=== PATIENT | male | born 1950 | race Two or more races ===

== ENCOUNTER 2017-04-21 14:13 | Outpatient (CLI) | payer OTHER ==
[~2017-04-21 14:13] MED LIST: ALAVERT5 MG/5 ML; PRILOSEC20 MG
== END 2017-04-21 14:16 | disposition home or self-care (01) ==
LOC: NUCLEAR 14:13
DX: M81.0 Age-related osteoporosis without current pathological fracture (principal)

== ENCOUNTER 2017-07-02 16:04 | Outpatient (CLI) | payer OTHER | END 2017-07-02 16:42 | disposition home or self-care (01) | LOC: LAB 16:04 | DX: N30.00 Acute cystitis without hematuria (principal); R82.79 Other abnormal findings on microbiological examination of urine; N39.41 Urge incontinence; Q05.2 Lumbar spina bifida with hydrocephalus; N31.1 Reflex neuropathic bladder, not elsewhere classified ==

== ENCOUNTER 2017-07-08 11:40 | Outpatient (CLI) | payer OTHER | END 2017-07-08 11:45 | disposition home or self-care (01) | LOC: SONOGRAMA 11:40 | DX: M25.511 Pain in right shoulder (principal); M25.512 Pain in left shoulder ==

== ENCOUNTER 2017-07-10 21:08 | Inpatient (IN) | payer OTHER ==
[~2017-07-10] VITALS: Ht 152.4 cm; Wt 61.2 kg
[2017-07-14] MEDS ORDERED: AVAPRO300 MG PO (14:22)
[2017-07-14] MEDS ORDERED: TYLENOL325 MG PO (14:23)
[2017-07-14] MEDS ORDERED: CEFDINIR300 MG PO (14:26)
== END 2017-07-14 15:01 | disposition home or self-care (01) | DRG 690 ==
LOC: ER 21:08 → MEDJ 07-11 11:03 → SEC-K 07-11 11:03 → MEDJ 07-11 12:35
DX: N39.0 Urinary tract infection, site not specified (principal); G82.22 Paraplegia, incomplete; Q05.4 Unspecified spina bifida with hydrocephalus; I11.9 Hypertensive heart disease without heart failure; K21.9 Gastro-esophageal reflux disease without esophagitis; Z93.59 Other cystostomy status

== ENCOUNTER 2017-10-20 17:17 | Outpatient (CLI) | payer OTHER ==
[~2017-10-20 17:17] MED LIST changes: +AVAPRO300 MG PO; +CEFDINIR300 MG PO; +TYLENOL325 MG PO
== END 2017-10-20 18:19 | disposition home or self-care (01) ==
LOC: LAB 17:17
DX: N30.00 Acute cystitis without hematuria (principal); N39.41 Urge incontinence; N31.1 Reflex neuropathic bladder, not elsewhere classified; Q05.2 Lumbar spina bifida with hydrocephalus; R82.79 Other abnormal findings on microbiological examination of urine

== ENCOUNTER → 2017-12-11 16:07 | Outpatient (CLI) | payer OTHER | END | disposition home or self-care (01) | LOC: LAB 12-10 14:05 | DX: N30.00 Acute cystitis without hematuria (principal); R82.79 Other abnormal findings on microbiological examination of urine ==

== ENCOUNTER 2018-01-20 17:27 | Outpatient (CLI) | payer OTHER | END 2018-01-20 17:52 | disposition home or self-care (01) | LOC: LAB 17:27 | DX: N39.0 Urinary tract infection, site not specified (principal); R82.79 Other abnormal findings on microbiological examination of urine ==

== ENCOUNTER 2018-01-23 11:11 | Outpatient (CLI) | payer OTHER | END 2018-01-23 11:18 | disposition home or self-care (01) | LOC: SONOGRAMA 11:11 → MAMO-SONO 11:15 → SONOGRAMA 11:18 | DX: R31.21 Asymptomatic microscopic hematuria (principal) ==

== ENCOUNTER 2018-06-15 19:59 | Outpatient (CLI) | payer OTHER | END 2018-06-15 20:57 | disposition home or self-care (01) | LOC: LAB 19:59 | DX: N39.0 Urinary tract infection, site not specified (principal); B96.29 Other Escherichia coli [E. coli] as the cause of diseases classified elsewhere ==

== ENCOUNTER → 2019-01-08 20:42 | Outpatient (CLI) | payer OTHER | END | disposition home or self-care (01) | LOC: LAB 20:42 | DX: N39.0 Urinary tract infection, site not specified (principal); B96.29 Other Escherichia coli [E. coli] as the cause of diseases classified elsewhere ==

== ENCOUNTER 2019-04-26 18:28 | Inpatient (IN) | payer OTHER ==
[~2019-04-26] VITALS: Ht 152.4 cm; Wt 63.5 kg
[2019-04-28] MEDS ORDERED: IRBESARTAN-HCT1 EAC1 (15:51)
[2019-04-28] MEDS ORDERED: B-121000 MC1 (15:51)
[2019-04-28] MEDS ORDERED: TOLTERODINE TART4 MG (15:51)
[2019-04-28] MEDS ORDERED: VITAMIN C500 M1 (15:51)
== END 2019-05-03 13:34 | disposition home or self-care (01) | DRG 690 ==
LOC: ER 18:28 → MEDJ 20:53
PROVIDERS: ADMIT Specialist
DX: N39.0 Urinary tract infection, site not specified (principal); G82.20 Paraplegia, unspecified; L02.211 Cutaneous abscess of abdominal wall; Q07.03 Arnold-Chiari syndrome with spina bifida and hydrocephalus; L03.311 Cellulitis of abdominal wall; B95.2 Enterococcus as the cause of diseases classified elsewhere; Z93.59 Other cystostomy status; Z99.3 Dependence on wheelchair; Q40.0 Congenital hypertrophic pyloric stenosis; I67.1 Cerebral aneurysm, nonruptured; I11.9 Hypertensive heart disease without heart failure

== ENCOUNTER 2019-05-28 15:27 | Outpatient (CLI) | payer OTHER ==
[~2019-05-28 15:27] MED LIST changes: +B-121000 MC1; +IRBESARTAN-HCT1 EAC1; +TOLTERODINE TART4 MG; +VITAMIN C500 M1
== END 2019-05-28 15:43 | disposition home or self-care (01) ==
LOC: LAB 15:27
DX: N39.0 Urinary tract infection, site not specified (principal)

== ENCOUNTER → 2019-07-05 17:01 | Outpatient (CLI) | payer OTHER | END | disposition home or self-care (01) | LOC: LAB 17:01 | DX: N39.0 Urinary tract infection, site not specified (principal); B96.29 Other Escherichia coli [E. coli] as the cause of diseases classified elsewhere ==

== ENCOUNTER 2019-07-27 19:07 | Emergency (ER) | payer OTHER ==
[~2019-07-27] VITALS: Ht 121.9 cm; Wt 65.8 kg
== END 2019-07-27 21:22 | disposition home or self-care (01) ==
LOC: ER 19:07
DX: K81.0 Acute cholecystitis (principal); R10.11 Right upper quadrant pain

== ENCOUNTER 2019-08-08 12:08 | Outpatient (CLI) | payer OTHER | END 2019-08-08 12:10 | disposition home or self-care (01) | LOC: SONOGRAMA 12:08 | PROVIDERS: ATTEND Internal Medicine Gastroenterology | DX: R10.10 Upper abdominal pain, unspecified (principal); K80.20 Calculus of gallbladder without cholecystitis without obstruction; K21.0 Gastro-esophageal reflux disease with esophagitis; K44.9 Diaphragmatic hernia without obstruction or gangrene ==

== ENCOUNTER 2019-08-14 11:48 | Outpatient (CLI) | payer OTHER | END 2019-08-14 13:28 | disposition home or self-care (01) | LOC: LAB 11:48 | PROVIDERS: ATTEND Internal Medicine Gastroenterology | DX: Z20.828 Contact with and (suspected) exposure to other viral communicable diseases (principal); Z11.59 Encounter for screening for other viral diseases ==

== ENCOUNTER 2019-08-15 14:45 | Inpatient (IN) | payer OTHER ==
[~2019-08-15] VITALS: Ht 147.3 cm; Wt 63.5 kg
== END 2019-08-26 22:42 | disposition home or self-care (01) | DRG 728 ==
LOC: ER 14:45 → MEDJ 21:00
PROVIDERS: ADMIT Specialist; ATTEND Specialist
PROC: BW40ZZZ Ultrasonography of Abdomen (ICD-10-PCS; principal; 2019-08-15)
PROC: BF2 Imaging, Hepatobiliary System and Pancreas, Computerized Tomography (CT Scan) (ICD-10-PCS; 2019-08-16)
PROC: BW21ZZZ Computerized Tomography (CT Scan) of Abdomen and Pelvis (ICD-10-PCS; 2019-08-25)
DX: B37.49 Other urogenital candidiasis (principal); K80.10 Calculus of gallbladder with chronic cholecystitis without obstruction; Q07.03 Arnold-Chiari syndrome with spina bifida and hydrocephalus; G82.20 Paraplegia, unspecified; F32.0 Major depressive disorder, single episode, mild; K22.0 Achalasia of cardia; I11.9 Hypertensive heart disease without heart failure; F41.9 Anxiety disorder, unspecified; Z93.50 Unspecified cystostomy status; Z99.3 Dependence on wheelchair

== ENCOUNTER → 2020-02-04 12:56 | Outpatient (CLI) | payer OTHER | END | disposition home or self-care (01) | LOC: RAD 12:56 | PROVIDERS: ATTEND Physical Medicine & Rehabilitation | DX: M47.892 Other spondylosis, cervical region (principal); M54.2 Cervicalgia ==

== ENCOUNTER → 2020-07-03 | Outpatient (CLI) | payer OTHER ==
[~2020-07-03] MED LIST changes: +GASTRACE CAPSU1 EACH; +PROTONIX IV40 MG
== END | disposition home or self-care (01) ==
LOC: MAMO-SONO 13:00 → SONOGRAMA 14:25
PROVIDERS: ATTEND Urology
DX: N30.00 Acute cystitis without hematuria (principal); N39.41 Urge incontinence; Q05.2 Lumbar spina bifida with hydrocephalus; N31.1 Reflex neuropathic bladder, not elsewhere classified

== ENCOUNTER 2020-07-31 17:06 | Emergency (ER) | payer OTHER ==
[~2020-07-31] VITALS: Ht 142.2 cm; Wt 59.0 kg
[~2020-07-31 17:06] MED LIST changes: -GASTRACE CAPSU1 EACH; -PROTONIX IV40 MG
[2020-07-31] MEDS ORDERED: GASTRACE CAPSU1 EACH (17:13)
[2020-07-31] MEDS ORDERED: PROTONIX IV40 MG (17:13)
== END 2020-07-31 22:13 | disposition home or self-care (01) ==
LOC: ER 17:06
DX: N39.0 Urinary tract infection, site not specified (principal); B96.89 Other specified bacterial agents as the cause of diseases classified elsewhere; R31.0 Gross hematuria; Q05.2 Lumbar spina bifida with hydrocephalus

== ENCOUNTER 2020-10-27 11:37 | Emergency (ER) | payer OTHER ==
[~2020-10-27] VITALS: Ht 147.3 cm; Wt 59.0 kg
[~2020-10-27 11:37] MED LIST changes: +GASTRACE CAPSU1 EACH; +PROTONIX IV40 MG
[2020-10-27] MEDS ORDERED: LEVOFLOXACIN500 MG PO (17:17)
== END 2020-10-27 18:27 | disposition home or self-care (01) ==
LOC: ER 11:37
DX: N39.0 Urinary tract infection, site not specified (principal); J02.9 Acute pharyngitis, unspecified; Z11.52 Encounter for screening for COVID-19

== ENCOUNTER → 2021-01-08 | Outpatient (CLI) | payer OTHER ==
[~2021-01-08] MED LIST changes: +LEVOFLOXACIN500 MG PO
== END | disposition home or self-care (01) ==
LOC: NUCLEAR 11:00
PROVIDERS: ATTEND Internal Medicine Cardiovascular Disease
DX: R00.2 Palpitations (principal); R07.89 Other chest pain

== ENCOUNTER 2021-02-27 14:06 | Emergency (ER) | payer OTHER ==
[~2021-02-27] VITALS: Ht 149.9 cm; Wt 59.0 kg
[2021-02-27] MEDS ORDERED: IRBESARTAN150 MG PO (14:52)
[2021-02-27] MEDS ORDERED: TOLTERODINE TART2 M1 PO (14:53)
== END 2021-02-27 20:52 | disposition home or self-care (01) ==
LOC: ER 14:06
DX: U07.1 COVID-19 (principal); N39.0 Urinary tract infection, site not specified

== ENCOUNTER 2021-11-19 14:58 | Outpatient (CLI) | payer OTHER ==
[~2021-11-19 14:58] MED LIST changes: +IRBESARTAN150 MG PO; +TOLTERODINE TART2 M1 PO
== END 2021-11-19 14:59 | disposition home or self-care (01) ==
LOC: SONOGRAMA 14:58
PROVIDERS: ATTEND Urology
DX: N30.00 Acute cystitis without hematuria (principal); N39.41 Urge incontinence; Q05.2 Lumbar spina bifida with hydrocephalus; N31.1 Reflex neuropathic bladder, not elsewhere classified

== ENCOUNTER 2022-03-06 19:38 | Emergency (ER) | payer OTHER ==
[~2022-03-06] VITALS: Ht 144.8 cm; Wt 61.2 kg
[2022-03-07] MEDS ORDERED: PROTONIX40 M1 PO (00:05)
[2022-03-07] MEDS ORDERED: CARAFATE1 GM PO (00:05)
[2022-03-07] MEDS ORDERED: LEVSIN/SL0.125 MG SL (00:05)
== END 2022-03-07 02:36 | disposition home or self-care (01) ==
LOC: ER 19:38
DX: K29.70 Gastritis, unspecified, without bleeding (principal); I10 Essential (primary) hypertension; E03.9 Hypothyroidism, unspecified; K80.20 Calculus of gallbladder without cholecystitis without obstruction; Z88.6 Allergy status to analgesic agent

== ENCOUNTER 2022-04-15 20:12 | Emergency (ER) | payer OTHER ==
[~2022-04-15] VITALS: Ht 132.1 cm; Wt 54.9 kg
[~2022-04-15 20:12] MED LIST changes: +CARAFATE1 GM PO; +LEVSIN/SL0.125 MG SL; +PROTONIX40 M1 PO
== END 2022-04-16 17:34 | disposition home or self-care (01) ==
LOC: ER 20:12
DX: N23 Unspecified renal colic (principal); Z88.8 Allergy status to other drugs, medicaments and biological substances

== ENCOUNTER 2022-05-12 15:46 | Outpatient (CLI) | payer OTHER | END 2022-05-12 23:00 | disposition home or self-care (01) | LOC: LAB 15:46 | PROVIDERS: ATTEND Urology | DX: N30.00 Acute cystitis without hematuria (principal); N39.41 Urge incontinence; Q05.2 Lumbar spina bifida with hydrocephalus; N31.1 Reflex neuropathic bladder, not elsewhere classified ==

== ENCOUNTER 2022-07-01 14:39 | Outpatient (CLI) | payer OTHER | END 2022-07-01 14:40 | disposition home or self-care (01) | LOC: LAB 14:39 | PROVIDERS: ATTEND Urology | DX: N30.00 Acute cystitis without hematuria (principal); N39.41 Urge incontinence; Q05.2 Lumbar spina bifida with hydrocephalus; N31.1 Reflex neuropathic bladder, not elsewhere classified; N21.0 Calculus in bladder ==

== ENCOUNTER → 2022-07-04 | Outpatient (CLI) | payer OTHER | END | disposition home or self-care (01) | LOC: TOM 10:58 | PROVIDERS: ATTEND Urology | DX: N30.00 Acute cystitis without hematuria (principal); N39.41 Urge incontinence; Q05.2 Lumbar spina bifida with hydrocephalus; N31.1 Reflex neuropathic bladder, not elsewhere classified; N21.0 Calculus in bladder ==

== ENCOUNTER 2022-10-18 11:59 | Outpatient (CLI) | payer OTHER | END 2022-10-18 12:01 | disposition home or self-care (01) | LOC: LAB 11:59 | DX: N39.0 Urinary tract infection, site not specified (principal) ==

== ENCOUNTER 2022-11-12 14:43 | Outpatient (CLI) | payer OTHER | END 2022-11-12 14:55 | disposition home or self-care (01) | LOC: MRI 14:43 | PROVIDERS: ATTEND Physical Medicine & Rehabilitation | DX: M54.12 Radiculopathy, cervical region (principal) | CPT/HCPCS: 72141 ==

== ENCOUNTER 2022-12-26 15:26 | Outpatient (CLI) | payer OTHER | END 2022-12-26 15:42 | disposition home or self-care (01) | LOC: SONOGRAMA 15:26 | PROVIDERS: ATTEND Otolaryngology | DX: R22.1 Localized swelling, mass and lump, neck (principal) ==

== ENCOUNTER 2023-03-06 15:06 | Outpatient (CLI) | payer OTHER | END 2023-03-06 15:48 | disposition home or self-care (01) | LOC: MRI 15:06 | PROVIDERS: ATTEND Psychiatry & Neurology Clinical Neurophysiology | DX: I67.1 Cerebral aneurysm, nonruptured (principal) | CPT/HCPCS: 70544 ==

== ENCOUNTER 2023-04-03 18:59 | Inpatient (IN) | payer OTHER ==
[~2023-04-03] VITALS: Ht 147.3 cm; Wt 61.2 kg
[2023-04-04 10:12] LABS: HEMATOCRIT 44.4 % (39.0-48.0); HEMOGLOBIN 15.5 g/dL (13-16.00); MEAN CELL VOLUME 95.3 fL (80.0-100.00); MEAN CORPUSCULAR HEMOGLOBIN 33.4 pg (27.00-32.0); PLATELET COUNT 264 K/uL (150-450); RED BLOOD COUNT 4.66 M/uL (4.00-6.00); RED CELL DISTRIBUTION WIDTH 13.1 % (11.5-14.5)
[2023-04-04 14:40] LABS: ALBUMIN 3.5 gm/dL (3.4-5.0); BILIRUBIN TOTAL 0.8 mg/dL (0.3-1.2); CALCIUM 9.4 mg/dL (8.5-10.1); CREATININE SERUM 0.51 mg/dL (0.70-1.30); GFR 159.31; GLOBULINA 4.4 G/DL (2.4-3.5); POTASSIUM 4.32 mEq/L (3.5-5.1); TOTAL PROTEIN 7.9 gm/dL (6.4-8.2)
[2023-04-04 15:33] LABS: PH,URINE 6.5 (5.0-8.0); URINE APPEARANCE Cloudy; URINE BILIRRUBIN Negative (NEGATIVE); URINE BLOOD Small; URINE COLOR Dark Yellow; URINE GLUCOSE Negative (NEGATIVE); URINE LEUKOCYTE Large; URINE NITRATE Positive; URINE PROTEIN Trace (NEGATIVE)
[2023-04-04 15:37] LABS: URINE EPITHELIAL CELLS 26.9 uL (0.0-38.8); URINE RBC 18.2 uL (0.0-20.8); URINE WBC 223.2 uL (0.0-23.2)
[2023-04-04 16:19] LABS: URINE BACTERIA > 9821.5 uL (0.0-1933)
[2023-04-04] MEDS ORDERED: SODIUM CHLORIDE 0.45 % 1,000 ML IV SCH (16:45)
[2023-04-04] MEDS ORDERED: VANCOMYCIN HCL 1,000 MG VIAL IV SCH (16:56)
[2023-04-04] MEDS ORDERED: ENALAPRILAT DIHYDRATE 1.25 MG/ML VIAL IV PRN (17:00)
[2023-04-04] MEDS ORDERED: LACTOBACILLUS ACIDOPHILUS 1 CAP CAP PO SCH (17:00)
[2023-04-04] MEDS ORDERED: ENOXAPARIN SODIUM 40 MG/0.4 ML SYRINGE SUBCUTANEO SCH (17:03)
[2023-04-04] MEDS ORDERED: PIPERACILLIN/TAZOBACTAM SODIUM 3.375 GM in 0.9 % SODIUM CHLORIDE 100 ML IV SCH (18:00)
[2023-04-04] MEDS ORDERED: FAMOTIDINE/PF 20 MG/2 ML VIAL IV PUSH SCH (21:00)
[2023-04-05] MEDS ORDERED: PANTOPRAZOLE SODIUM 40 MG/VIAL VIAL IV SCH (06:00)
[2023-04-05 07:30] LABS: HEMOGLOBIN 14.2 g/dL (13-16.00); MEAN CELL VOLUME 93.6 fL (80.0-100.00); MEAN CORPUSCULAR HEMOGLOBIN 32.3 pg (27.00-32.0); MEAN CORPUSCULAR HGB CONC 34.5 g/dl (32.0-36.0); PLATELET COUNT 242 K/uL (150-450); RED BLOOD COUNT 4.39 M/uL (4.00-6.00); RED CELL DISTRIBUTION WIDTH 13.1 % (11.5-14.5)
[2023-04-05 07:39] LABS: ALBUMIN 3.1 gm/dL (3.4-5.0); BILIRUBIN TOTAL 0.75 mg/dL (0.3-1.2); CALCIUM 8.8 mg/dL (8.5-10.1); CREATININE SERUM 0.63 mg/dL (0.70-1.30); GFR 124.83; GLOBULINA 3.3 G/DL (2.4-3.5); MAGNESIUM 2.2 mg/dL (1.8-2.4); PHOSPHOROUS 2.8 mg/dL (2.5-4.9); POTASSIUM 4.96 mEq/L (3.5-5.1); TOTAL PROTEIN 6.4 gm/dL (6.4-8.2); TSH 1.72 uIU/mL (0.358-3.74)
[2023-04-05 07:42] LABS: C-REACTIVE PROTEIN 3.19 MG/DL (0.00-0.29)
[2023-04-05 08:08] LABS: ERYTHROCYTE SEDIMENTATION RATE 14 mm/hr
[2023-04-05] MEDS ORDERED: CLOTRIMAZOLE 15 GM TUBE TOP SCH (14:26)
[2023-04-05] MEDS ORDERED: SODIUM CL 0.9% 100 ML IV.SOLN IV ONE (16:08)
[2023-04-06] MEDS ORDERED: MEROPENEM 500 MG/VIAL VIAL IV SCH (14:00)
[2023-04-06] MEDS ORDERED: NYSTATIN 30 GM,SILVER SULFADIAZINE 50 GM,ZINC OXIDE 30 GM TOP SCH (17:00)
[2023-04-06] MEDS ORDERED: RIVAROXABAN 15 MG TABLET PO SCH (17:17)
[2023-04-06] MEDS ORDERED: TEMAZEPAM 15 MG CAPSULE PO SCH (21:00)
[2023-04-07 06:56] LABS: HEMATOCRIT 37.4 % (39.0-48.0); MEAN CELL VOLUME 92.8 fL (80.0-100.00); MEAN CORPUSCULAR HEMOGLOBIN 32.3 pg (27.00-32.0); MEAN CORPUSCULAR HGB CONC 34.8 g/dl (32.0-36.0); PLATELET COUNT 238 K/uL (150-450); RED BLOOD COUNT 4.03 M/uL (4.00-6.00); RED CELL DISTRIBUTION WIDTH 13.3 % (11.5-14.5)
[2023-04-07 07:25] LABS: ALBUMIN 2.9 gm/dL (3.4-5.0); BILIRUBIN TOTAL 0.34 mg/dL (0.3-1.2); CALCIUM 8.6 mg/dL (8.5-10.1); CREATININE SERUM 0.57 mg/dL (0.70-1.30); GFR 140.12; GLOBULINA 3.3 G/DL (2.4-3.5); MAGNESIUM 2.5 mg/dL (1.8-2.4); PHOSPHOROUS 3.1 mg/dL (2.5-4.9); POTASSIUM 4.26 mEq/L (3.5-5.1); TOTAL PROTEIN 6.2 gm/dL (6.4-8.2)
[2023-04-07] MEDS ORDERED: OxyCODONE HCL/APAP UD (PERCOCET) PO PRN (21:15)
[2023-04-08 07:17] LABS: PH,URINE 5.5 (5.0-8.0); URINE APPEARANCE Cloudy; URINE BILIRRUBIN Negative (NEGATIVE); URINE BLOOD NHT; URINE COLOR Yellow; URINE GLUCOSE Negative (NEGATIVE); URINE LEUKOCYTE Moderate; URINE NITRATE Negative; URINE PROTEIN Negative (NEGATIVE)
[2023-04-08 07:18] LABS: URINE BACTERIA 293.5 uL (0.0-1933); URINE EPITHELIAL CELLS 117.6 uL (0.0-38.8); URINE RBC 21.2 uL (0.0-20.8); URINE WBC 91.3 uL (0.0-23.2)
[2023-04-08 08:07] LABS: URINE CRYSTALS FEW /HPF
[2023-04-08] MEDS ORDERED: CEFTRIAXONE SODIUM 2,000 MG VIAL IV SCH (17:00)
[2023-04-08] MEDS ORDERED: levoFLOXacin IN DEXTROSE 5 % 150 ML IV SCH (21:00)
[2023-04-08] MEDS ORDERED: FAMOtidine 20 MG TABLET PO SCH (21:00)
[2023-04-09] MEDS ORDERED: PANTOPRAZOLE SODIUM 40 MG TABLET.DR PO SCH (06:00)
[2023-04-10 07:16] LABS: HEMATOCRIT 36.5 % (39.0-48.0); HEMOGLOBIN 12.4 g/dL (13-16.00); MEAN CELL VOLUME 93.4 fL (80.0-100.00); MEAN CORPUSCULAR HEMOGLOBIN 31.8 pg (27.00-32.0); MEAN CORPUSCULAR HGB CONC 34.1 g/dl (32.0-36.0); PLATELET COUNT 221 K/uL (150-450); RED BLOOD COUNT 3.91 M/uL (4.00-6.00); RED CELL DISTRIBUTION WIDTH 13.4 % (11.5-14.5)
[2023-04-10 08:16] LABS: CALCIUM 8.6 mg/dL (8.5-10.1); CREATININE SERUM 0.4 mg/dL (0.70-1.30); GFR 210.86; MAGNESIUM 2.2 mg/dL (1.8-2.4); PHOSPHOROUS 3.1 mg/dL (2.5-4.9); POTASSIUM 4.18 mEq/L (3.5-5.1)
[2023-04-10 08:25] LABS: C-REACTIVE PROTEIN 0.53 MG/DL (0.00-0.29)
[2023-04-10] MEDS ORDERED: POLYETHYLENE GLYCOL 3350 17 GM BLIST.PACK PO SCH (20:10)
[2023-04-11] MEDS ORDERED: ACETAMINOPHEN 500 MG GEL..CAP PO PRN (12:30)
[2023-04-13 06:55] LABS: CALCIUM 8.9 mg/dL (8.5-10.1); CREATININE SERUM 0.54 mg/dL (0.70-1.30); GFR 149.14; POTASSIUM 4.23 mEq/L (3.5-5.1)
[2023-04-13 07:35] LABS: HEMOGLOBIN 12.8 g/dL (13-16.00); MEAN CELL VOLUME 93.9 fL (80.0-100.00); MEAN CORPUSCULAR HEMOGLOBIN 32.5 pg (27.00-32.0); MEAN CORPUSCULAR HGB CONC 34.6 g/dl (32.0-36.0); PLATELET COUNT 251 K/uL (150-450); RED BLOOD COUNT 3.95 M/uL (4.00-6.00); RED CELL DISTRIBUTION WIDTH 13.5 % (11.5-14.5)
[2023-04-13] MEDS ORDERED: CHLORHEXIDINE GLUCONATE 120 ML BOTTLE TOP SCH (11:14)
[2023-04-13] MEDS ORDERED: TEMAZEPAM 15 MG CAPSULE PO SCH (22:30)
[2023-04-14 06:57] LABS: URINE APPEARANCE Clear; URINE BILIRRUBIN Negative (NEGATIVE); URINE BLOOD Trace; URINE COLOR Yellow; URINE GLUCOSE Negative (NEGATIVE); URINE LEUKOCYTE Moderate; URINE NITRATE Negative; URINE PROTEIN Negative (NEGATIVE); URINE UROBILINOGEN 0.2 E.U./dl
[2023-04-14 07:06] LABS: URINE BACTERIA 177.6 uL (0.0-1933); URINE EPITHELIAL CELLS 60.6 uL (0.0-38.8); URINE RBC 18.2 uL (0.0-20.8); URINE WBC 192.8 uL (0.0-23.2)
== END 2023-04-15 17:17 | disposition home or self-care (01) | DRG 593 ==
LOC: ER 19:00 → MEDJ 04-04 17:12
PROVIDERS: General Practice; Internal Medicine; Internal Medicine Geriatric Medicine; Internal Medicine Infectious Disease; ADMIT Specialist; ATTEND Specialist
PROC: B54DZZZ Ultrasonography of Bilateral Lower Extremity Veins (ICD-10-PCS; principal; 2023-04-04)
PROC: B24BZZZ Ultrasonography of Heart with Aorta (ICD-10-PCS; 2023-04-09)
DX: L97.529 Non-pressure chronic ulcer of other part of left foot with unspecified severity (principal); G82.20 Paraplegia, unspecified; L03.116 Cellulitis of left lower limb; N39.0 Urinary tract infection, site not specified; I82.422 Acute embolism and thrombosis of left iliac vein; I82.412 Acute embolism and thrombosis of left femoral vein; I82.442 Acute embolism and thrombosis of left tibial vein; I82.432 Acute embolism and thrombosis of left popliteal vein; L03.115 Cellulitis of right lower limb; L97.519 Non-pressure chronic ulcer of other part of right foot with unspecified severity; B96.20 Unspecified Escherichia coli [E. coli] as the cause of diseases classified elsewhere; B95.61 Methicillin susceptible Staphylococcus aureus infection as the cause of diseases classified elsewhere; B96.89 Other specified bacterial agents as the cause of diseases classified elsewhere; Q05.9 Spina bifida, unspecified; I10 Essential (primary) hypertension

== ENCOUNTER 2023-05-12 13:10 | Outpatient (CLI) | payer OTHER | END 2023-05-12 13:12 | disposition home or self-care (01) | LOC: SONOGRAMA 13:10 | PROVIDERS: ATTEND Urology | DX: N20.0 Calculus of kidney (principal); R31.1 Benign essential microscopic hematuria ==

== ENCOUNTER 2023-05-13 17:45 | Outpatient (CLI) | payer OTHER ==
[2023-05-13 18:10] LABS: PH,URINE 8.5 (5.0-8.0); URINE APPEARANCE Turbid; URINE BILIRRUBIN Negative (NEGATIVE); URINE BLOOD Small; URINE COLOR Yellow; URINE GLUCOSE Negative (NEGATIVE); URINE LEUKOCYTE Large; URINE NITRATE Negative; URINE PROTEIN 30 (NEGATIVE)
[2023-05-13 18:13] LABS: URINE EPITHELIAL CELLS 16.5 uL (0.0-38.8); URINE RBC 48.9 uL (0.0-20.8); URINE WBC 2786.7 uL (0.0-23.2)
[2023-05-13 19:06] LABS: URINE BACTERIA > 9821.5 uL (0.0-1933); URINE CRYSTALS NEGATIVE /HPF; URINE MUCUS HEAVY
[2023-05-13 19:07] LABS: URINE YEAST FEW /hpf
== END 2023-05-13 17:52 | disposition home or self-care (01) ==
LOC: LAB 17:45
PROVIDERS: ATTEND Urology
DX: N30.00 Acute cystitis without hematuria (principal)

== ENCOUNTER 2023-12-16 16:09 | Outpatient (CLI) | payer OTHER | END 2023-12-16 16:10 | disposition home or self-care (01) | LOC: SONOGRAMA 16:09 | PROVIDERS: ATTEND Urology | DX: R31.1 Benign essential microscopic hematuria (principal) ==

== ENCOUNTER 2024-01-13 14:08 | Outpatient (CLI) | payer OTHER | END 2024-01-13 14:15 | disposition home or self-care (01) | LOC: RAD 14:08 | PROVIDERS: ATTEND Specialist | DX: A49.3 Mycoplasma infection, unspecified site (principal); J11.1 Influenza due to unidentified influenza virus with other respiratory manifestations ==

== ENCOUNTER 2024-03-08 17:51 | Outpatient (CLI) | payer OTHER ==
[2024-03-08 18:30] LABS: PH,URINE 5.5 (5.0-8.0); URINE APPEARANCE Turbid; URINE BILIRRUBIN Negative (NEGATIVE); URINE BLOOD Moderate; URINE COLOR Yellow; URINE GLUCOSE Negative (NEGATIVE); URINE KETONE Negative (NEGATIVE); URINE LEUKOCYTE Large; URINE NITRATE Positive; URINE UROBILINOGEN 0.2 E.U./dl
[2024-03-08 18:32] LABS: URINE BACTERIA 5294.7 uL (0.0-1933); URINE CAST 1.91 uL (0.0-1.40); URINE EPITHELIAL CELLS 35.4 uL (0.0-38.8); URINE RBC 27.1 uL (0.0-20.8)
[2024-03-08 18:45] LABS: URINE PROTEIN 100 (NEGATIVE); URINE WBC > 5548.3 uL (0.0-23.2)
[2024-03-08 18:53] LABS: URINE CRYSTALS FEW /HPF; URINE YEAST NEGATIVE /hpf
== END 2024-03-08 18:01 | disposition home or self-care (01) ==
LOC: LAB 17:51
PROVIDERS: ATTEND Urology
DX: N30.00 Acute cystitis without hematuria (principal); N39.41 Urge incontinence; Q05.2 Lumbar spina bifida with hydrocephalus; N31.1 Reflex neuropathic bladder, not elsewhere classified

== ENCOUNTER 2024-03-11 17:46 | Emergency (ER) | payer OTHER ==
[~2024-03-11] VITALS: Ht 165.1 cm; Wt 61.2 kg
[2024-03-11] MEDS ORDERED: CEFTRIAXONE SODIUM 2,000 MG VIAL IV STA (18:57)
[2024-03-11] MEDS ORDERED: CEFTRIAXONE SODIUM 2,000 MG VIAL ONE (19:02)
== END 2024-03-11 19:48 | disposition home or self-care (01) ==
LOC: ER 17:48
DX: N39.0 Urinary tract infection, site not specified (principal); Z88.6 Allergy status to analgesic agent

== ENCOUNTER 2024-04-15 17:21 | Outpatient (CLI) | payer OTHER ==
[2024-04-15 17:34] LABS: PH,URINE 5.5 (5.0-8.0); URINE APPEARANCE Cloudy; URINE BILIRRUBIN Negative (NEGATIVE); URINE BLOOD Trace; URINE COLOR Yellow; URINE GLUCOSE Negative (NEGATIVE); URINE KETONE Negative (NEGATIVE); URINE LEUKOCYTE Large; URINE NITRATE Positive; URINE PROTEIN Negative (NEGATIVE); URINE UROBILINOGEN 0.2 E.U./dl
[2024-04-15 17:35] LABS: URINE EPITHELIAL CELLS 16.4 uL (0.0-38.8); URINE RBC 6.9 uL (0.0-20.8)
[2024-04-15 17:38] LABS: URINE BACTERIA > 9821.5 uL (0.0-1933); URINE CAST 0.73 uL (0.0-1.40)
== END 2024-04-15 17:27 | disposition home or self-care (01) ==
LOC: LAB 17:21
PROVIDERS: ATTEND Urology
DX: N30.00 Acute cystitis without hematuria (principal); N39.41 Urge incontinence; Q05.2 Lumbar spina bifida with hydrocephalus; N31.1 Reflex neuropathic bladder, not elsewhere classified

== ENCOUNTER 2024-06-17 16:49 | Outpatient (CLI) | payer OTHER ==
[2024-06-17 17:13] LABS: PH,URINE 7.5 (5.0-8.0); URINE APPEARANCE Turbid; URINE BILIRRUBIN Negative (NEGATIVE); URINE BLOOD Small; URINE COLOR Dark Yellow; URINE GLUCOSE Negative (NEGATIVE); URINE KETONE Negative (NEGATIVE); URINE LEUKOCYTE Large; URINE NITRATE Positive
[2024-06-17 17:16] LABS: URINE CAST 6.85 uL (0.0-1.40); URINE EPITHELIAL CELLS 14.7 uL (0.0-38.8); URINE RBC 29.2 uL (0.0-20.8); URINE WBC 1187.1 uL (0.0-23.2)
[2024-06-17 17:41] LABS: URINE BACTERIA > 9821.5 uL (0.0-1933); URINE CRYSTALS MANY /HPF; URINE PROTEIN 100 (NEGATIVE)
== END 2024-06-17 16:53 | disposition home or self-care (01) ==
LOC: LAB 16:49
PROVIDERS: ATTEND Urology
DX: N30.00 Acute cystitis without hematuria (principal)

== ENCOUNTER 2024-06-18 17:17 | Emergency (ER) | payer OTHER ==
[~2024-06-18] VITALS: Ht 149.9 cm; Wt 59.0 kg
[2024-06-18] MEDS ORDERED: CEFTRIAXONE SODIUM 2,000 MG VIAL IV STA (18:05)
[2024-06-18] MEDS ORDERED: CEFTRIAXONE SODIUM 2,000 MG VIAL ONE (18:13)
[2024-06-18] MEDS ORDERED: ACETAMINOPHEN 500 MG GEL..CAP PO ONE (18:13)
[2024-06-18 18:50] LABS: PH,URINE 6.5 (5.0-8.0); URINE APPEARANCE Cloudy; URINE BILIRRUBIN Negative (NEGATIVE); URINE BLOOD Small; URINE COLOR Yellow; URINE GLUCOSE Negative (NEGATIVE); URINE KETONE Negative (NEGATIVE); URINE LEUKOCYTE Large; URINE NITRATE Positive; URINE PROTEIN 30 (NEGATIVE); URINE UROBILINOGEN 0.2 E.U./dl
[2024-06-18 18:51] LABS: HEMATOCRIT 39.3 % (39.0-48.0); HEMOGLOBIN 13.6 g/dL (13-16.00); MEAN CELL VOLUME 96.1 fL (80.0-100.00); MEAN CORPUSCULAR HEMOGLOBIN 33.2 pg (27.00-32.0); MEAN CORPUSCULAR HGB CONC 34.5 g/dl (32.0-36.0); PLATELET COUNT 205 K/uL (150-450); RED BLOOD COUNT 4.09 M/uL (4.00-6.00); RED CELL DISTRIBUTION WIDTH 12.9 % (11.5-14.5)
[2024-06-18 18:53] LABS: URINE CAST 2.35 uL (0.0-1.40); URINE EPITHELIAL CELLS 15.8 uL (0.0-38.8); URINE RBC 13.9 uL (0.0-20.8); URINE WBC 350.5 uL (0.0-23.2)
[2024-06-18 19:27] LABS: ALBUMIN 3.5 gm/dL (3.4-5.0); BILIRUBIN TOTAL 0.69 mg/dL (0.3-1.2); CALCIUM 9.3 mg/dL (8.5-10.1); CREATININE SERUM 0.59 mg/dL (0.70-1.30); GFR 134.28; GLOBULINA 4.3 G/DL (2.4-3.5); POTASSIUM 4.21 mEq/L (3.5-5.1); TOTAL PROTEIN 7.8 gm/dL (6.4-8.2)
[2024-06-18 19:31] LABS: URINE BACTERIA > 9821.5 uL (0.0-1933)
[2024-06-18 19:33] LABS: URINE CRYSTALS NEGATIVE /HPF
== END 2024-06-18 20:06 | disposition home or self-care (01) ==
LOC: ER 17:18
PROVIDERS: General Practice
DX: N39.0 Urinary tract infection, site not specified (principal); G82.20 Paraplegia, unspecified; Q05.9 Spina bifida, unspecified; Z88.8 Allergy status to other drugs, medicaments and biological substances
CPT/HCPCS: 36415; 96365; 99282; J0696

== ENCOUNTER 2024-10-01 17:25 | Emergency (ER) | payer OTHER ==
[~2024-10-01] VITALS: Ht 152.4 cm; Wt 61.2 kg
[2024-10-01] MEDS ORDERED: FLAVOXATE HCL100 MG PO (17:58)
[2024-10-01] MEDS ORDERED: FAMOTIDINE/PF 20 MG/2 ML VIAL IV PUSH STA (18:20)
[2024-10-01] MEDS ORDERED: FAMOTIDINE/PF 20 MG/2 ML VIAL ONE (18:22)
[2024-10-01 19:21] LABS: BASO % 0.6 % (0.1-1.2); EOS # 0.51 (0.04-0.54); EOS % 7.1 % (0.7-7.0); LYMPH # 2.02 (1.18-3.74); LYMPH % 28.2 % (19.3-53.1); MEAN PLATELET VOLUME 8.50 fl (9.4-12.4); MONO # 0.47 (0.24-0.82); MONO % 6.6 % (4.7-12.5); NEUT # 4.10 (1.56-6.13); NEUT % 57.1 % (34.0-71.1); RED CELL DISTRIBUTION WIDTH 12.6 % (11.6-14.4)
[2024-10-01 19:51] LABS: ALT/SGPT 22.0 U/L (12-78); AST/SGOT 12.0 U/L (15-37); BILIRUBIN TOTAL 0.46 mg/dL (0.3-1.2); BUN CREA RATIO 22.0 (7.0-25.0); CREATININE SERUM 0.5 mg/dL (0.70-1.30); GFR 162.54; GLOBULINA 3.8 G/DL (2.4-3.5); GLUCOSE FASTING 100.0 mg/dL (65-100); OSMOLALITY SERUM 284.0 MOSM/KG (275-295)
[2024-10-01 20:09] LABS: URINE APPEARANCE Clear; URINE BILIRRUBIN Negative (NEGATIVE); URINE BLOOD Trace; URINE COLOR Yellow; URINE GLUCOSE Negative (NEGATIVE); URINE KETONE Negative (NEGATIVE); URINE LEUKOCYTE Large; URINE NITRATE Positive; URINE PROTEIN Negative (NEGATIVE); URINE UROBILINOGEN 0.2 E.U./dl
[2024-10-01 20:12] LABS: URINE CAST 1.61 uL (0.0-1.40); URINE EPITHELIAL CELLS 5.6 uL (0.0-38.8); URINE RBC 2.4 uL (0.0-20.8); URINE WBC 210.8 uL (0.0-23.2)
[2024-10-01 20:31] LABS: URINE BACTERIA > 9821.5 uL (0.0-1933)
[2024-10-01 20:41] LABS: COVID-19 AG NEGATIVE (NEGATIVE)
[2024-10-01] MEDS ORDERED: PEPCID AC20 MG PO (21:12)
[2024-10-01] MEDS ORDERED: BACTRIM DS TAB1 EACH PO (21:12)
[2024-10-01] MEDS ORDERED: ACETAMINOPHEN 500 MG GEL..CAP PO STA (21:25)
[2024-10-01] MEDS ORDERED: CEFTRIAXONE SODIUM 1,000 MG VIAL IM STA (21:25)
[2024-10-01] MEDS ORDERED: ACETAMINOPHEN 500 MG GEL..CAP PO ONE ×2 (21:27)
[2024-10-01] MEDS ORDERED: CEFTRIAXONE SODIUM 1,000 MG VIAL ONE (21:27)
== END 2024-10-01 21:37 | disposition home or self-care (01) ==
LOC: ER 17:25
PROVIDERS: General Practice
DX: N39.0 Urinary tract infection, site not specified (principal); Z20.822 Contact with and (suspected) exposure to COVID-19; Z88.6 Allergy status to analgesic agent

== ENCOUNTER 2024-10-11 09:34 | Outpatient (CLI) | payer OTHER ==
[~2024-10-11 09:34] MED LIST changes: +BACTRIM DS TAB1 EACH PO; +FLAVOXATE HCL100 MG PO; +PEPCID AC20 MG PO
== END 2024-10-11 09:37 | disposition home or self-care (01) ==
LOC: SONOGRAMA 09:34
PROVIDERS: ATTEND Specialist
DX: K80.20 Calculus of gallbladder without cholecystitis without obstruction (principal)

== ENCOUNTER → 2024-10-11 11:46 | Outpatient (CLI) | payer OTHER ==
[2024-10-11 13:11] LABS: ALT/SGPT 23 U/L (12-78); AST/SGOT 16 U/L (15-37); BILIRUBIN TOTAL 0.57 mg/dL (0.3-1.2); BILIRUBIN,CONJUGATED 0.17 mg/dL (0.0-0.2); BUN CREA RATIO 23 (7.0-25.0); CREATININE SERUM 0.53 mg/dL (0.70-1.30); GFR 151.97; GLOBULINA 3.2 G/DL (2.4-3.5); GLUCOSE FASTING 95 mg/dL (65-100); OSMOLALITY SERUM 283 MOSM/KG (275-295); PROSTATIC SPECIFIC ANTIGEN 0.482 NG/ML (0.010-4.00)
== END | disposition home or self-care (01) ==
LOC: LAB 11:46
PROVIDERS: ATTEND Specialist
DX: N40.1 Benign prostatic hyperplasia with lower urinary tract symptoms (principal); E11.65 Type 2 diabetes mellitus with hyperglycemia; J45.998 Other asthma; K75.81 Nonalcoholic steatohepatitis (NASH); M35.3 Polymyalgia rheumatica

== ENCOUNTER → 2024-11-18 | Outpatient (CLI) | payer OTHER | END | disposition home or self-care (01) | LOC: RAD 11:57 | PROVIDERS: ATTEND Physical Medicine & Rehabilitation | DX: M25.511 Pain in right shoulder (principal); M25.512 Pain in left shoulder ==

== ENCOUNTER 2024-11-29 09:42 | Outpatient (CLI) | payer OTHER | END 2024-11-29 09:44 | disposition home or self-care (01) | LOC: MRI 09:42 | PROVIDERS: ATTEND Internal Medicine Gastroenterology | DX: K80.20 Calculus of gallbladder without cholecystitis without obstruction (principal) | CPT/HCPCS: 74181 ==

== ENCOUNTER 2024-12-13 07:00 | Day surgery (SDC) | payer OTHER ==
[2024-12-13] MEDS ORDERED: MIDAZOLAM HCL 2 MG/2 ML VIAL IV STA (10:52)
[2024-12-13] MEDS ORDERED: FLUMAZENIL 0.5 MG/5 ML ML IV STA (10:53)
== END 2024-12-13 12:35 | disposition home or self-care (01) ==
LOC: AMB-ENDOS 07:00
PROVIDERS: ATTEND Internal Medicine Gastroenterology
DX: R13.14 Dysphagia, pharyngoesophageal phase (principal); K29.80 Duodenitis without bleeding; R14.0 Abdominal distension (gaseous)

== ENCOUNTER → 2025-01-10 | Emergency (ER) | payer OTHER ==
[~2025-01-10] VITALS: Ht 152.4 cm; Wt 59.0 kg
[~2025-01-10] MED LIST changes: +COZAAR100 MG PO; +KETOROLAC TROMETHAMINE 30 MG VIAL IM ONE; +KETOROLAC TROMETHAMINE 30 MG VIAL ONE
== END | disposition home or self-care (01) ==
LOC: ER 14:42
DX: M25.552 Pain in left hip (principal); I10 Essential (primary) hypertension; Z88.8 Allergy status to other drugs, medicaments and biological substances
CPT/HCPCS: 73501; 73551; 96372; 99283; J1885

== ENCOUNTER → 2025-01-24 08:35 | Outpatient (CLI) | payer OTHER ==
[~2025-01-24 08:35] MED LIST changes: -KETOROLAC TROMETHAMINE 30 MG VIAL IM ONE; -KETOROLAC TROMETHAMINE 30 MG VIAL ONE
== END | disposition home or self-care (01) ==
LOC: NUCLEAR 01-17 08:00
DX: M79.662 Pain in left lower leg (principal)